=== PATIENT | male | born 1970 | race Caucasian/White ===

== ENCOUNTER 2025-05-08 13:01 | Day surgery (SDC) | payer OTHER, SELFPAY ==
[2025-05-08 13:19] VITALS: BP 127/89; PULSE 75; RESP 17; TEMP 36.5; O2SAT 100
--- NOTE | 2025-05-08 13:32 | W.COLOREPORT ---
Date of service: 05/08/25 Time of Service: 13:32 Colonoscopy Report Procedure Description: PROCEDURES PERFORMED: 1. Colonoscopy with cold forceps polypectomy 2. Cold forceps biopsy PREOPERATIVE DIAGNOSIS: Fecal occult blood test positive POSTOPERATIVE DIAGNOSIS: Hyperplastic colorectal polyps, non-specific segmental colitis SURGEON: Anupama Jones MD INDICATION FOR PROCEDURE: 54-year-old man is in his usual state of health. He had a fecal occult blood test done for screening purposes and this was positive which prompted the recommendation for colonoscopy. No family history of colon cancer. He denies any symptoms of concern. FINDINGS: Normal terminal ileum. In the proximal sigmoid colon(~25-30cm), there was a segmental, circumferential area about 5-10 cm in length which had an unusual appearance to it. It encompassed the entire colon. It bled easily when biopsied. There were no ulcers or visible inflammation. It just does not look normal. I biopsied this area extensively in various locations. In order for the pathologist to compare tissue, I also biopsied normal-appearing colon mucosa elsewhere as a separate specimen. The significance of this area is uncertain and could represent chronic sub-clinical colitis of some sort. There was no diverticular disease anywhere. Polyps: Two small(2-3mm) flat, hyperplastic?appearing polyps were removed with cold forceps technique from the rectum. Unfortunately the scant tissue from them was lost within the scope so no pathology was sent on them. No obvious diverticular disease anywhere. No significant hemorrhoid disease. SURVEILLANCE interval/FOLLOW-UP: Pending pathology results on the biopsy. Probably 10 years. Depending on biopsy results, a referral to GI could be warranted if something unusual surfaces. I had a detailed discussion with the patient about this possibility post-procedure. SPECIMENS: Yes EBL: Minimal COMPLICATIONS: None QUALITY of prep: Excellent Procedure in detail: The patient gave written consent and was in agreement with the indications, the potential risks as well as the benefits of the procedure. We went to the endoscopy suite, anesthesia was administered after a timeout and then I started the procedure. Digital rectal and visual examination was performed and grossly within normal limits. A well-lubricated flexible colonoscope was then introduced and passed without any notable difficulty all the way to the cecum identified by the ileocecal valve and the appendiceal orifice. The terminal ileum was deeply intubated and looked normal. The scope was then slowly withdrawn with the above-noted findings. The patient tolerated the procedure well and was taken to the PACU in hemodynamically stable condition.
--- NOTE | 2025-05-08 13:33 | W.PM.DSUDISC ---
Date of service: 05/08/25 Discharge Plan Disposition Patient Disposition: Home Condition: Good Discharge Details Attending Provider: Marty Jones Primary Care Provider: Jessica Garcia Home Meds and New Rx's Prescriptions: No Action bisacodyl [Dulcolax (bisacodyl)] 5 mg tablet,delayed release (DR/EC) 5 mg PO ONCE Qty: 4 0RF Rx Instructions: Take per colonoscopy instructions provided by ordering providers office polyethylene glycol 3350 17 gram/dose powder 17 g PO ONCE Qty: 238 0RF Rx Instructions: Take per colonoscopy instructions provided by ordering providers office fexofenadine [Allergy Relief (fexofenadine)] 180 mg tablet 180 mg PO DAILY omeprazole 20 mg tablet,delayed release (DR/EC) 20 mg PO DAILY Discharge Instructions Additional Instructions: FINDINGS: No worrisome polyps were found today. No cancer. There was an unusual area of inflammation that was seen which is non-? specific. And may be normal and just looks inflamed, but it could also represent something like autoimmune colitis or a mild infection. It was biopsied multiple times and we will call you with those biopsy results in the next couple of weeks. Under most circumstances, we will recommend that you repeat your colonoscopy in 10 years. Stand Alone Forms: Anesthesia Discharge Inst., Colonoscopy Post Instructions, Sindy Sexton (DSU) Activity:: Activity as Tolerated Diet:: As Tolerated Discharge Orders Discharge Orders: Discharge Order (Routine); Ordered 05/08/25 Ordered By: Marty Jones
[2025-05-08] MEDS: Lactated Ringers 1,000 ML 80 ML IV (13:38)
--- NOTE | 2025-05-08 14:20 | W.ANESPRE ---
General Info Date of Service Date Performed: 05/08/25 Height: 5 ft 9 in Weight: 89.811 kg Body Mass Index (BMI): 29.2 Surgical Procedure: Operation Date: 05/08/25 13:05 Proposed Procedure Side Surgeon louisa Jones MD Meds Allergies and Home Medications Allergies Allergy/AdvReac Type Severity Reaction Status Date / Time No Known Allergies Allergy Verified 05/06/25 14:15 Home Medication ?Medication ?Instructions ?Recorded fexofenadine 180 mg tablet 180 mg PO DAILY 02/25/25 (Allergy Relief (fexofenadine)) bisacodyl 5 mg tablet,delayed 5 mg PO ONCE #4 tabs 04/23/25 release (Dulcolax (bisacodyl)) polyethylene glycol 3350 17 17 g PO ONCE #238 grams 04/23/25 gram/dose oral powder omeprazole 20 mg tablet,delayed 20 mg PO DAILY 05/08/25 release Current Visit Medications: Current Medications Generic Name Dose Route Start Last Admin Trade Name Freq PRN Reason Stop Dose Admin Ringer's Solution 1,000 mls @ 80 mls/hr 05/08/25 06:00 05/08/25 13:38 IV 05/08/25 23:59 80 mls/hr INFUSION YURIDIA Administration IV Miscellaneous Supplies 1 each 05/08/25 06:00 Iv Access IV 05/08/25 23:59 DIRECTED YURIDIA Sodium Chloride 0 ml 05/08/25 06:00 Normal Saline Flush 10 Ml Syr IV 05/08/25 23:59 PRN PRN Sodium Chloride 0 ml 05/08/25 06:00 Normal Saline 10 Ml Vial IJ 05/08/25 23:59 DIRECTED PRN Sterile Water 0 ml 05/08/25 06:00 Water,Injection,Sterile 10 Ml Vial IJ 05/08/25 23:59 DIRECTED PRN PFSH Active Problems Active Problems: Problem Status Onset Code Allergic rhinitis Acute J30.9 Hyperlipidemia Acute E78.5 Essential hypertension Acute I10 Fecal occult blood test positive Acute R19.5 Medical History Medical History (Updated 05/08/25 @ 13:34 by Faiza Jimenez RN) Heart burn Superficial injury of scrotum Surgical History Surgical History Hx of wisdom tooth extraction Hx of foot surgery Tobacco Smoking/Tobacco Use Status: Former Tobacco Use Alcohol Alcohol Intake: current Alcohol intake frequency: 0-2 drinks per day Alcohol type: hard liquor Substance Use Substance use: Never Substance use type: does not use Vital Signs and Lab Results Vital Signs Most Recent Vital Signs in EMR: Most Recent Vital Signs Temp Pulse Resp BP Pulse Ox 36.5 C 75 17 127/89 100 05/08/25 13:19 05/08/25 13:19 05/08/25 13:19 05/08/25 13:19 05/08/25 13:19 Anesthesia Assessment and Plan Anesthesia History Personal History: Other Family History: No Family History of Anesthesia Complications Exercise Tolerance Exercise Tolerance: Metabolic Equivalents>4 Pertinent Negatives Pertinent Negatives: No Symptoms of GERD Cardiac & Pulmonary Exam Cardiac Exam: Normal S1/S2 Heart Sounds Pulmonary Exam: Clear Bilateral Breath Sounds Implantable Cardiac Device Does patient have a Pacemaker or an ICD?: No Airway Exam Known Difficult Airway: No Mallampati Class: 2 Mouth Opening: Normal (> 3cm) Thyromental Distance: Greater than 3 cm Neck Range of Motion: Full ROM Neck Circumference: Normal Teeth Condition: Normal Dentition ASA Classification ASA Score: ASA 2 Emergency Case?: No NPO Status NPO Status: NPO Clears >2 hours, Solids >8 hours Anesthesia Plan Resuscitation Status: Full Code Anesthesia Technique: General Anesthesia Airway Planned: Natural Airway Monitors Used: Standard Monitors
[2025-05-08 14:21] VITALS: BMI 29.2
--- NOTE | 2025-05-08 14:47 | BOWEL_PTH ---
PATIENT: Gunnar Velasquez LOC: [facility] U#:[id number] AGE/SX: 54/M ROOM: RE05/08/[address]: Marty Jones : 1970 BED: DIS: 05/08/2025 SPEC #: [id number] RECD: 05/11/25 12:18 STATUS: RACHEAL RE #: [id number] MURALI: 05/08/25 14:[address]: Marty Jones DEPT: Surgical Specimen RECD BY: Nina Lala ENTERED: 05/11/25 12:20 SP TYPE: Bowel OTHR DR: Jessica Garcia Tissues: 1 - BIOPSY BOWEL 2 - BIOPSY BOWEL Procedures: GROSS AND MICRO LEVEL 4 Comments: [id number]
[2025-05-08 15:00] VITALS: BP 102/64; PULSE 61; RESP 17; TEMP 36.2; O2SAT 95
--- NOTE | 2025-05-08 15:01 | W.ANESPOSTOP ---
Postoperative Evaluation Date, Time and Location Date Performed: 05/08/25 Time Performed: 15:01 Patient Location: Day Surgery Unit Vital Signs Most Recent Imported Vital Signs: Most Recent Vital Signs Temp Pulse Resp BP Pulse Ox 36.5 C 75 17 127/89 100 05/08/25 13:19 05/08/25 13:19 05/08/25 13:19 05/08/25 13:19 05/08/25 13:19 Pain Score Most Recent Pain Score: Most Recent Pain Score Pain Level 0 05/08/25 13:19 Assessment Mental Status: Awake (Alert & Oriented to Patient Baseline) Airway and Respiratory Function: Patent airway with normal (patient baseline) respiratory exam Cardiovascular Function: Hemodynamically Stable Hydration Status: Adequately Hydrated Nausea & Vomiting: No Nausea or Vomiting Pain: Pt. Denies Any Pain Peripheral Nerve Block: Patient did not receive a nerve block
[2025-05-08 15:39] VITALS: BP 116/76; PULSE 66; RESP 17; TEMP 36.1; O2SAT 97
== END 2025-05-08 15:44 | disposition home or self-care (01) ==
LOC: SUR 13:01
PROVIDERS: PCP Internal Medicine; Visit Provider Student in an Organized Health Care Education/Training Program
PROC: 0DJD8ZZ Inspection of Lower Intestinal Tract, Via Natural or Artificial Opening Endoscopic (ICD-10-PCS; CPT 45378; principal; 2025-05-08 13:00)
DX: Z12.11 Encounter for screening for malignant neoplasm of colon (principal); I10 Essential (primary) hypertension; K63.5 Polyp of colon; K52.9 Noninfective gastroenteritis and colitis, unspecified
CPT/HCPCS: 45380; 88305; J2704